=== PATIENT | female | born 1975 | race African-American/Black ===

== ENCOUNTER 2018-05-13 12:05 | Day surgery (SDC) | payer BC ==
[~2018-05-13] VITALS: Ht 157.5 cm; Wt 127.3 kg
--- NOTE | ~2018-05-13 | OP ---
PATIENT NAME: DIONY SALMON MEDICAL RECORD: [id number] :79 [facility] AD[facility] DATE: SURGEON: ANTHONY HERRON DO DATE OF OPERATION: 05/13/2018 PROCEDURE: EGD with biopsies. INDICATIONS FOR PROCEDURE: GERD, nausea and vomiting, periumbilical pain, abnormal CT of abdomen and pelvis with duodenojejunal intussusception. SCOPE: Olympus video gastroscope. MEDICATIONS: Propofol IV per anesthesia. ESTIMATED BLOOD LOSS: Minimal. COMPLICATIONS: None. FINDINGS: Informed consent was given. The patient was made comfortable with the above medication. After reaching an adequate level of sedation by slow IV push, the patient was placed on her left side. An endoscope was advanced under direct visualization through the mouth to the duodenojejunal junction. The upper, middle, and lower thirds of the esophagus appeared normal. At the GE junction, there was evidence of moderate LA class A reflux-induced esophagitis. The endoscope was advanced beyond the GE junction in the stomach and retroflexed to view the cardia, where a small- to medium-size hiatal hernia was present. The hernia was a sliding-type hernia. There were no associated ulcers with this hernia. Throughout the stomach, there were patchy areas of erythema and granularity, consistent with gastritis. There were some erosions and very superficial ulcerations in the antrum. Random cold forceps biopsies were taken to submit for histopathology and to rule out the presence of H. pylori. The endoscope was advanced beyond the pylorus into the duodenum. The duodenal bulb, first portion, second portion, and third portion appeared to have villous changes and possible duodenitis. Multiple cold forceps biopsies were taken to submit for histopathology. The endoscope was withdrawn from the patient. The patient tolerated the procedure well and there were no complications. IMPRESSION: 1. Moderate LA class A reflux-induced esophagitis. 2. Small- to medium-size sliding hiatal hernia. 3. Gastritis. 4. Duodenitis. PLAN AND RECOMMENDATIONS: 1. Discharge home when recovery parameters are met. 2. Follow up biopsy specimen results. 3. Proceed with colonoscopy as scheduled. 4. Change antacid therapy to proton pump inhibitor. A prescription will be given for omeprazole 40 mg capsules to be taken once daily times 60 days. After that time, the patient may return to use of ranitidine daily or as needed. 5. Gastric emptying scan regarding upper digestive symptoms. 6. Consider right upper quadrant ultrasound if other studies are negative. 7. Consider surgical treatment of hiatal hernia if reflux remains uncontrolled. TRANSINT:[id number] Voice Confirmation ID: [id number] DOCUMENT ID: [id number] OPERATIVE REPORT [id number] DIONY SALMON NATHAN A DO CC: [id number] DICTATION DATE: 05/13/18 1426 BRICK SETTER OPERATOR: 05/13/18 1506 [facility] [address] [id number]
[~2018-05-13 12:05] MED LIST: CALAN SR180 MG PO; GLUCOPHAGE500 MG PO; HYDROCODONE-APA1 TAB PO; LOTREL 5/20 MG1 CAP; MAXZIDE 75/501 TAB PO; TRIGLIDE160 MG PO; VENTOLIN HFA18 GM INH
[2018-05-13] MEDS ORDERED: ZANTAC300 MG PO (13:00)
[2018-05-13 13:02] LABS: HEMATOCRIT 41.3 % (36.0-48.0); HEMOGLOBIN 13.9 g/dL (12-16); MCH 30.7 pg (26.0-34.0); MCHC 33.7 g/dL (31.0-37.0); MCV 91.2 fL (80.0-100.0); MEAN PLATELET VOLUME 9.9 fL (7.4-10.4); RBC 4.53 10x6/uL (4.00-5.40); RDW 14.1 % (11.5-14.5); WBC 6.6 10x3/uL (4.8-10.8)
[2018-05-13 13:04] VITALS: BP 128/77; Ht 157.5 cm; Wt 127.3 kg
[2018-05-13 13:31] LABS: HCG URINE NEGATIVE (NEGATIVE)
== END 2018-05-13 15:45 | disposition home or self-care (01) ==
LOC: D.OPS 12:05
PROVIDERS: Anesthesiology; ATTEND Internal Medicine Gastroenterology
DX: K21.0 Gastro-esophageal reflux disease with esophagitis (principal); K44.9 Diaphragmatic hernia without obstruction or gangrene; K29.50 Unspecified chronic gastritis without bleeding; K29.80 Duodenitis without bleeding; Z01.812 Encounter for preprocedural laboratory examination

== ENCOUNTER 2018-10-09 07:22 | Day surgery (SDC) | payer BC ==
[~2018-10-09] VITALS: Ht 158.8 cm; Wt 127.3 kg
[~2018-10-09 07:22] MED LIST changes: +ZANTAC300 MG PO
[2018-10-09 08:09] LABS: HEMATOCRIT 41.2 % (36.0-48.0); HEMOGLOBIN 14.2 g/dL (12-16); MCH 30.9 pg (26.0-34.0); MCHC 34.5 g/dL (31.0-37.0); MCV 89.6 fL (80.0-100.0); MEAN PLATELET VOLUME 10.1 fL (7.4-10.4); RBC 4.6 10x6/uL (4.00-5.40); WBC 5.5 10x3/uL (4.8-10.8)
[2018-10-09 08:30] VITALS: Ht 158.8 cm; Wt 127.3 kg
[2018-10-09 10:38] LABS: HCG SERUM NEGATIVE (NEGATIVE)
--- NOTE | 2018-10-09 11:12 | NUR ---
IV DC'D WITH TIP INTACT, DISCHARGE INSTRUCTIONS PROVIDED.
--- NOTE | 2018-10-10 17:39 | OP ---
PATIENT NAME: DIONY SALMON MEDICAL RECORD: [id number] :79 LOCATION:[facility] ADMISSION DATE: SURGEON: ANTHONY HERRON DO DATE OF OPERATION: 10/09/2018 PROCEDURE: Colonoscopy with polypectomy. INDICATIONS FOR PROCEDURE: Chronic constipation, hematochezia, periumbilical pain. SCOPE: Olympus video pediatric colonoscope. MEDICATIONS: Propofol 420 mg IV per anesthesia. WITHDRAWAL TIME: 9 minutes. ESTIMATED BLOOD LOSS: Minimal. COMPLICATIONS: None. FINDINGS AND DESCRIPTION OF PROCEDURE: Informed consent was given. The patient was made comfortable with the above medication. After reaching an adequate level of sedation by slow IV push, the patient was placed on her left side. A digital rectal examination was performed and was normal. The endoscope was then advanced under direct visualization through the rectum to the cecum, confirmed by the presence of the appendiceal orifice and ileocecal valve. The terminal ileum was briefly intubated and appeared normal. The endoscope was then slowly withdrawn and mucosa was carefully examined. The prep quality was fair. There were 4 polyps visualized on today's examination. Three were located in the descending colon. They were all benign appearing and sessile and ranged in size from 3-5 mm in diameter. They were all removed using a hot snare in 1 piece. In the rectum, there was a single benign-appearing sessile polyp, which measured approximately 3-4 mm in diameter. It was removed using hot snare in 1 piece. Retroflexion was performed in the rectum with visualization of grade I internal hemorrhoids without bleeding. The endoscope was withdrawn from the patient. The patient tolerated the procedure well and there were no complications. IMPRESSION: 1. Four polyps as described above, removed using hot snare. 2. Grade I internal hemorrhoids without bleeding. PLAN AND RECOMMENDATIONS: 1. Discharge home when recovery parameters are met. 2. Follow up biopsy specimen results. 3. High fiber diet. 4. Supplement diet with Metamucil 1 tablespoon daily. 5. Notify GI clinic if stools are not improving with fiber alone. 6. Recall colonoscopy in 3 years based on number and types of polyps removed on today's examination. TRANSINT:[id number] Voice Confirmation ID: [id number] DOCUMENT ID: [id number] OPERATIVE REPORT [id number] DIONY SALMON ANTHONY HERRON DO at 1739 CC: [id number] DICTATION DATE: 10/09/18 1023 PATIENT CARE SECRETARY: 10/09/18 1046 [facility] 10/09/[id number] [place] [address]
== END 2018-10-09 11:12 | disposition home or self-care (01) ==
LOC: D.OPS 07:22
PROVIDERS: Anesthesiology; ATTEND Internal Medicine Gastroenterology
DX: K59.09 Other constipation (principal); K64.0 First degree hemorrhoids; K63.5 Polyp of colon; K92.1 Melena